=== PATIENT | male | born 1995 ===

== ENCOUNTER 2020-10-09 13:50 | Outpatient (CLI) | payer MEDICAID ==
[~2020-10-09] VITALS: Ht 182.9 cm; Wt 95.3 kg
[2020-10-09 14:04] VITALS: BP 134/6
--- NOTE | 2020-10-09 17:29 | Consultation ---
DATE OF CONSULTATION: 10/09/2020 CHIEF COMPLAINT: Referral for rectal pain. PAST MEDICAL HISTORY: None. PAST SURGICAL HISTORY: None. MEDICATIONS: None. FAMILY HISTORY: None. SOCIAL HISTORY: The patient occasionally drinks alcohol. Denies any tobacco but smokes marijuana on and off. ALLERGIES: No known allergies. PHYSICAL EXAMINATION: VITAL SIGNS: Temperature 98.2, blood pressure 134/60, pulse 70, respirations 20. Height is 6 feet. Weight is 210. HEENT: Normocephalic and atraumatic. Sclerae anicteric. NECK: Supple. No evidence of obvious lymphadenopathy. CARDIOVASCULAR: Regular rate and rhythm. Plus S1, S2. LUNGS: Clear to auscultation bilaterally. ABDOMEN: Positive bowel sounds. Soft and nontender. No rebound. No guarding. No peritoneal sign. GENITOURINARY: Rectal exam showed evidence of large external hemorrhoids and also the patient had evidence of possible perianal abscess with some drainage. EXTREMITIES: No cyanosis, no clubbing, no edema. ASSESSMENT: A 25-year-old male with hemorrhoids, mostly external and possible perianal abscess. PLAN: Give Cipro and Flagyl for 10 days. The patient need to be seen by surgery for possible drainage, also treatment of the external hemorrhoids. Estuardo Sher M.D. DR: Yimi JOB#: [id number] CC:
== END 2020-10-09 14:23 | disposition home or self-care (01) ==
LOC: PAN 13:50
DX: K62.89 Other specified diseases of anus and rectum (principal); K64.4 Residual hemorrhoidal skin tags
CPT/HCPCS: 99203